=== PATIENT | male | born 1985 | race Caucasian/White ===

== ENCOUNTER 2017-01-12 16:03 | Emergency (ER) | payer OTHER ==
[2017-01-12 16:21] VITALS: BP 121/86; PULSE 97; RESP 16; TEMP 98.1; O2SAT 96
[2017-01-12] MEDS ORDERED: LET GEL TOPICAL 1 EA SYR TP ONE (17:02)
[2017-01-12] MEDS ORDERED: IBUPROFEN 600 MG TAB PO ONE (17:04)
--- NOTE | 2017-01-12 18:33 | EDPHY ---
H & P Time Seen by Provider: 01/12/17 17:06 HPI/ROS: This patient complains of left thumb laceration. The patient explains that he was using a razor blade to clean Caulk from an old window at home pulling blade toward him when it slipped and caused laceration of the dorsum of the left thumb. Injury occurred yesterday evening. His girlfriend saw the wound today prompted his visit to come in for evaluation. He reports moderate pain scissors moderate bleeding yesterday that resolved with direct pressure. ROS: Musculoskeletal: No difficulty moving the affected thumb. Neuro: No numbness. No other complaints and 5 point ROS is otherwise negative. Past Medical/Surgical History: Immunizations up-to-date. Smoking Status: Current every day smoker Physical Exam: Physical Exam Vital signs are normal. General: No acute distress HEENT: Atraumatic. Eyes: Pupils equal and react to light. Extraocular motions are intact. Lungs: No respiratory distress. Cardiac: Brisk capillary refill is intact throughout. Pulses are 2+ and symmetric in the affected extremity. Skin: & thumb exam- No rash or pallor. Patient has a 3 cm long laceration the dorsum of the left thumb gaping open by 8 mm. There is a hematoma present when removed there is underlying soft tissue exposure including the extensor tendon sheath but no injury to the tendon is evident. No foreign bodies. No bony tenderness. Patient is able to extend the thumb to 5/5 strength versus resistance Neuro: Alert and oriented x3 with no sensorimotor deficits in the affected thumb. Constitutional: Initial Vital Signs Temperature (C) 36.7 C 01/12/17 16:03 Heart Rate 97 01/12/17 16:03 Respiratory Rate 16 01/12/17 16:03 Blood Pressure 121/86 H 01/12/17 16:03 O2 Sat (%) 96 01/12/17 16:03 O2 Delivery Mode Room Air Allergies/Adverse Reactions: No Known Allergies Allergy (Verified 01/12/17 16:21) Home Medications: Medication Instructions Recorded Adderall 10 MG (*) 01/12/17 MDM/Departure - MDM Procedures: The wound is 3 cm [id number] The wound was copiously irrigated with saline. The wound was explored for foreign bodies and none were found. The wound was prepped and draped in the normal sterile fashion. The wound was anesthetized using let solution followed by 50 50 mix of 0.5% Marcaine and 1% plain lidocaine, 27 gauge needle, 3 mL injected with good effect. The edges were reapproximated using 4 0 Prolene-3 interrupted sutures and 8 running sutures with good hemostasis and cosmesis. The patient tolerated the procedure well. There were no complications. Medications Given: Discontinued Medications Ibuprofen (Motrin) 600 mg PO EDNOW ONE Stop: 01/12/17 17:05 Last Admin: 01/12/17 17:11 Dose: 600 mg Tetracaine/Epinephrine/Lidocaine (Let Gel Topical) 1 ea TP EDNOW ONE Stop: 01/12/17 17:03 Last Admin: 01/12/17 17:09 Dose: 1 ea ED Course/Re-evaluation: Patient is placed in a dressing. I explained there is some increased risk of potential infection given delayed presentation for the wound however given the significance of the size of the wound in the location felt that the small risk of infection from closing it was outweighed by the functionality of closure - Depart Disposition: Home, Routine, Self-Care Clinical Impression: Thumb laceration Qualifiers: Encounter type: initial encounter Damage to nail status: without damage Foreign body presence: without foreign body Laterality: left Qualified Code(s): S61.012A - Laceration without foreign body of left thumb without damage to nail , initial encounter Condition: Good Instructions: Finger Laceration (ED) Additional Instructions: Diagnosis: Thumb laceration Plan: Keep the wound clean and dry for the next 2 days, then removed the dressing and clean daily with warm soapy water Return for suture removal in 10- 12 days. Ibuprofen Tylenol for pain as needed Return sooner if he develops redness, discharge or other concerns for infection. Referrals: Camila Gerber MD [Primary Care Provider] - As per Instructions
== END 2017-01-12 18:45 | disposition home or self-care (01) ==
LOC: CED 16:03
PROC: 0HQGXZZ Repair Left Hand Skin, External Approach (ICD-10-PCS; principal; 2017-01-12)
DX: S61.012A Laceration without foreign body of left thumb without damage to nail, initial encounter (principal); F17.200 Nicotine dependence, unspecified, uncomplicated; W45.8XXA Other foreign body or object entering through skin, initial encounter

== ENCOUNTER 2017-04-16 21:01 | Emergency (ER) | payer OTHER ==
[2017-04-16 21:10] VITALS: O2SAT 96
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
[2017-04-16] MEDS ORDERED: NS 1,000 ML IV ONE (22:04)
[2017-04-16 22:25] LABS: % IMMATURE GRANULYOCYTES 0.4 % (0.0-1.1); ABSOLUTE IMMATURE GRANULOCYTES 0.02 10^3/uL (0.00-0.10); ADD DIFF? NO; ADD MORPH? NO; ADD SCAN? NO; ATYPICAL LYMPHOCYTE FLAG 0 (0-99); FRAGMENT RBC FLAG 0 (0-99); HEMATOCRIT 39.8 % (40.0-51.0); HEMOGLOBIN 13.8 g/dL (13.7-17.5); LEFT SHIFT FLG 0 (0-99); LIPEMIA HEMOLYSIS FLAG 90 (0-99); MEAN CELL HEMOGLOBIN 33.2 pg (27.9-34.1); MEAN CELL HEMOGLOBIN CONCENTR. 34.7 g/dL (32.4-36.7); MEAN CELL VOLUME 95.7 fL (81.5-99.8); MEAN PLATELET VOLUME 8.5 fL (8.7-11.7); PLATELET CLUMPS FLAG 0 (0-99); PLATELET COUNT 279 10^3/uL (150-400); RED BLOOD CELL COUNT 4.16 10^6/uL (4.40-6.38); RED CELL DISTRIBUTION WIDTH 12.2 % (11.5-15.2)
[2017-04-16 22:38] LABS: ANION GAP 13 mEq/L (8-16); CALCIUM 9.9 mg/dL (8.5-10.4); CARBON DIOXIDE 25 mEq/l (22-31); CHLORIDE 103 mEq/L (97-110); CREATININE 1.2 mg/dL (0.7-1.3); GLOMERULAR FILTRATION RATE > 60; GLUCOSE 130 mg/dL (70-100); SODIUM 141 mEq/L (134-144)
[2017-04-17 00:03] VITALS: BP 126/63; PULSE 77; RESP 16; TEMP 98.1
[2017-04-17 00:20] LABS: COLOR YELLOW; LEUKOCYTE ESTERASE,URINE NEGATIVE (NEGATIVE); NITRITE,URINE NEGATIVE (NEGATIVE)
[2017-04-17 00:30] LABS: RBC,URINE 0-1 /hpf (0-3)
[2017-04-17 00:38] LABS: MUCUS 2+ /lpf (NONE-1+)
== END 2017-04-17 00:02 | disposition home or self-care (01) ==
LOC: CED 21:01
PROC: 3E0337Z Introduction of Electrolytic and Water Balance Substance into Peripheral Vein, Percutaneous Approach (ICD-10-PCS; principal; 2017-04-16)
DX: S39.840A Fracture of corpus cavernosum penis, initial encounter (principal); F17.200 Nicotine dependence, unspecified, uncomplicated; E86.9 Volume depletion, unspecified; X58.XXXA Exposure to other specified factors, initial encounter
CPT/HCPCS: 76870-PO; 80048-PO; 81003-PO; 81015-PO; 85025-PO